=== PATIENT | male | born 1980 | race African-American/Black ===

== ENCOUNTER 2017-01-31 12:00 | Emergency (ER) | payer OTHER ==
[~2017-01-31] VITALS: Ht 180.3 cm; Wt 104.3 kg
[~2017-01-31 12:00] MED LIST: CIPROFLOXACIN500 M2 ORAL; HYDROCODON-ACE1 EA15 ORAL; METRONIDAZOLE500 MG ORAL
[2017-01-31 12:16] VITALS: BP 114/74
[2017-01-31 13:04] LABS: APPEARANCE,URINE CLEAR; KETONES,URINE NEGATIVE (NEGATIVE); LEUKOCYTE ESTERASE ,URINE 2+ (NEGATIVE); NITRITE,URINE NEGATIVE (NEGATIVE); PH,URINE 7 (4.5-8.0); PROTEIN,URINE NEGATIVE (NEGATIVE); UROBILINOGEN,URINE NORMAL MG/DL (0.0-1.0)
[2017-01-31] MEDS ORDERED: Lidocaine 1% MPF 10mg/ml 5ml INJ ONE (13:15)
[2017-01-31 13:19] LABS: BACTERIA,URINE OCCASIONAL /HPF; MUCUS,URINE FEW /LPF (NONE/OCC); RBC,URINE 0-2 /HPF (0 - 0); SQUAMOUS EPITHELIAL CELL,UR OCCASIONAL /LPF (NONE/OCC)
--- NOTE | 2017-01-31 13:23 | Emergency Room Report ---
History of Present Illness General Chief Complaint: Male Urogenital Problems Source: Patient Present Illness HPI 37-year-old male presents to the emergency department complaining of penile discharge with dysuria and finding out that his partner just was tested positive for gonorrhea. Patient also reports intermittent vertigo x1 week. reports feeling as though the room is spinning around him exacerbations upon getting up out of bed or sitting up too quickly. pt. reports hx of vertigo in the past. Patient denies history of head injury he denies tinnitus, recent upper respiratory illness, extremity weakness, facial droop, ear pain. He denies history of vertigo in the past. Also reports generalized ache headache and 2 days of constipation. He reports nausea he denies vomiting. he denies swollen tender lymph nodes, rashes, abdominal tenderness. Denies testicular pain or swelling. Denies CP, Palpitations, LOC, AMS, dizziness, Changes in Vision, Sensation, paresthesias, or a sudden severe headache. Allergies: Coded Allergies: DOLUTEGRAVIR (Verified Allergy, Unknown, 01/31/17) Patient History Past Medical History: see triage record Past Surgical History: none Pertinent Family History: none Immunizations: UTD Reviewed Nursing Documentation: PMH: Agreed, PSxH: Agreed Nursing Documentation-PMH Past Medical History: No History, Except For Review of Systems All Other Systems: negative except mentioned in HPI Physical Exam Vital Signs Date Time Temp Pulse Resp B/P (MAP) Pulse Ox O2 Delivery O2 Flow Rate FiO2 01/31/17 12:16 97.9 86 18 114/74 98 Room Air Sp02 EP Interpretation: reviewed, normal General Appearance: no apparent distress, alert, GCS 15, non-toxic Head: normocephalic, atraumatic Eyes: bilateral eye normal inspection, bilateral eye PERRL ENT: hearing grossly normal, normal voice Neck: full range of motion, supple/symm/no masses Respiratory: lungs clear, normal breath sounds, speaking full sentences Cardiovascular #1: regular rate, rhythm Gastrointestinal: normal bowel sounds, non tender, soft Rectal: deferred Genitourinary: normal inspection, no CVA tenderness, other - white d/c Musculoskeletal: back normal, gait/station normal, normal range of motion, non- tender Neurologic: alert, oriented x3, responsive, motor strength/tone normal, sensory intact, cerebellar normal, normal gait, speech normal, other - negative padmini-hallpike Skin: normal color, no rash, warm/dry, well hydrated Lymphatic: no adenopathy Medical Decision Making PA Attestation Dr. worley is my supervising Physician whom patient management has been discussed with. Diagnostic Impression: Primary Impression: Peripheral vertigo, unspecified Additional Impression: Contact with or exposure to venereal diseases ER Course 37-year-old male presents to the emergency department complaining of penile discharge with dysuria and finding out that his partner just was tested positive for gonorrhea. Patient also reports intermittent vertigo x1 week. reports feeling as though the room is spinning around him exacerbations upon getting up out of bed or sitting up too quickly. pt. reports hx of vertigo in the past. Patient denies history of head injury he denies tinnitus, recent upper respiratory illness, extremity weakness, facial droop, ear pain. He denies history of vertigo in the past. Also reports generalized ache headache and 2 days of constipation. He reports nausea he denies vomiting. he denies swollen tender lymph nodes, rashes, abdominal tenderness. Denies testicular pain or swelling. Denies CP, Palpitations, LOC, AMS, dizziness, Changes in Vision, Sensation, paresthesias, or a sudden severe headache. Ddx considered but are not limited to UTi , Urethritis, LGV, STI, Stone, Cystitis, prostatitis, Mnire's, BPPV, labrinitis, cerebellar stroke, hypovolemia, cardiac cause. Vital signs: are WNL, pt. is afebrile H&PE are most consistent with Urethritis, and peripheral vertigo- negative [place]- Hallpike ORDERS: - UA : evidence of infection with mucus, bacteria and elevated wbc's will treat. ED INTERVENTIONS: -250mg Rocephin IM -Reglan -Oral fluid/ food challenge: pt. able to tolerate oral intake. I do not suspect an emergent condition at this time. With current presentation, pt. is stable for close outpatient follow up and conservative treatment. D/w pt. to return promptly to ED with worsening or new symptoms.- Pt. (and or responsible green party) verbalizes' understanding and agreement with proposed treatment plan. DISCHARGE: At this time pt. is stable for d/c to home. Will provide printed patient care instructions, and any necessary prescriptions. Care plan and follow up instructions have been discussed with the patient prior to discharge. Labs Test 01/31/17 12:47 Urine Color Yellow Urine Appearance Clear Urine pH 7 (4.5-8.0) Urine Specific [place] 1.010 (1.005-1.035) Urine Protein Negative (NEGATIVE) Urine Glucose (UA) Negative (NEGATIVE) Urine Ketones Negative (NEGATIVE) Urine Occult Blood Negative (NEGATIVE) Urine Nitrite Negative (NEGATIVE) Urine Bilirubin Negative (NEGATIVE) Urine Urobilinogen Normal MG/DL (0.0-1.0) Urine Leukocyte Esterase 2+ (NEGATIVE) Urine RBC 0-2 /HPF (0 - 0) Urine WBC 10-15 /HPF (0 - 0) Urine Squamous Epithelial Cells Occasional /LPF Urine Bacteria Occasional /HPF (NONE) Urine Mucus Few /LPF (NONE/OCC) Last Vital Signs Date Time Temp Pulse Resp B/P (MAP) Pulse Ox O2 Delivery O2 Flow Rate FiO2 01/31/17 12:16 97.9 86 18 114/74 98 Room Air Disposition: HOME, SELF-CARE Condition: Stable Scripts Doxycycline Hyclate* (VIBRAMYCIN*) 100 Mg Capsule 100 MG ORAL EVERY 12 HOURS for 7 Days, #14 CAP 0 Refills Prov: Brooke Mccracken 01/31/17 Meclizine Hcl* (MECLIZINE*) 25 Mg Tablet 25 MG ORAL THREE TIMES A DAY, #15 TAB Prov: Brooke Mccracken 01/31/17 Docusate Sodium* (COLACE*) 100 Mg Capsule 100 MG ORAL THREE TIMES A DAY for 5 Days, #15 CAP Prov: Brooke Mccracken 01/31/17 Departure Forms: Return to Work Return to Work Date: Feb 03, 2017 Work Restrictions: None Return to Full Activity: Feb 03, 2017 Patient Instructions: Gonorrhea, Vertigo, [id number] Additional Instructions: Take medications as directed. MAKE SURE YOUR PARTNERS GET TREATED WITH ANTIBIOTICS to prevent becoming re- infected No intercourse for 7-10 days, as you are infectious and can spread the bacterial infection. until antibiotic medications have been completed. Follow up with PCP in 3-5 days Return sooner to ED if new symptoms occur, or current symptoms become Brooke Mccracken Jan 31, 2017 13:23
[2017-01-31] MEDS: Meclizine 25mg tab ORAL PRN ×2 (13:36→13:37)
[2017-01-31] MEDS ORDERED: VIBRAMYCIN100 MG ORAL (14:01)
[2017-01-31] MEDS ORDERED: COLACE100 MG ORAL (14:01)
[2017-01-31] MEDS ORDERED: MECLIZINE HCL25 MG ORAL (14:01)
[2017-01-31 14:11] VITALS: BP 114/74
== END 2017-01-31 14:11 | disposition home or self-care (01) ==
LOC: EMR 13:25
DX: H81.399 Other peripheral vertigo, unspecified ear (principal); Z20.2 Contact with and (suspected) exposure to infections with a predominantly sexual mode of transmission
CPT/HCPCS: 81003; 87086; 96372; 99283

== ENCOUNTER 2017-03-14 12:58 | Emergency (ER) | payer OTHER ==
[~2017-03-14] VITALS: Ht 180.3 cm; Wt 98.0 kg
[~2017-03-14 12:58] MED LIST changes: +COLACE100 MG ORAL; +MECLIZINE HCL25 MG ORAL; +VIBRAMYCIN100 MG ORAL
[2017-03-14] MEDS ORDERED: GENVOYA TABLET1 EACH PO (13:08)
[2017-03-14 13:34] VITALS: BP 110/75
--- NOTE | 2017-03-14 13:46 | Emergency Room Report ---
History of Present Illness General Chief Complaint: General Complaint Source: Patient, Friend Present Illness HPI 37 yo male presents to ER complaining of anxiety and fainting. State episode occurred a "little while ago". Patient reports on his way to a new job his bus was running late and he began to hyperventilate and began to experience symptoms of vertigo and dizziness. Reports he then fell to the ground and hit his head. Patient denies pain at sight of injury, denies open wound, active bleeding. Friend reports witnessing event; states he called 911 and that friend was conscious and able to answer questions during the entire event. Patient was not brought in by ambulance. Patient states he has been able to eat and drink; states he has not been "drinking enough water lately." Patient reports history of anxiety, bipolar, HIV. Patient reports he is taking HIV medication but not taking medications psych conditions because he lost insurance. Patient denies vision changes, hearing changes. Patient denies chest pain, SOB, fever, muscle weakness, leg pain. Patient denies history of recent illness. Allergies: Coded Allergies: DOLUTEGRAVIR (Verified Allergy, Unknown, 01/31/17) Patient History Past Medical History: see triage record, psych hx, HIV Social History: Denies: smoking, alcohol use, drug use Reviewed Nursing Documentation: PMH: Agreed, PSxH: Agreed Nursing Documentation-PMH Past Medical History: No History, Except For Review of Systems All Other Systems: negative except mentioned in HPI Physical Exam Vital Signs Date Time Temp Pulse Resp B/P (MAP) Pulse Ox O2 Delivery O2 Flow Rate FiO2 03/14/17 13:01 97.9 102 20 110/75 97 Room Air Sp02 EP Interpretation: reviewed, normal General Appearance: alert, GCS 15, non-toxic, mild distress - complains of dizziness Head: normocephalic, atraumatic, other - no TTP, active bleeding, no open wound Eyes: bilateral eye normal inspection, bilateral eye PERRL, bilateral eye EOMI , bilateral eye other - mild nystagmus with EOM test ENT: hearing grossly normal, normal pharynx, no angioedema, normal voice, TMs + canals normal, uvula midline, moist mucus membranes Neck: full range of motion, supple/symm/no masses Respiratory: chest non-tender, lungs clear, normal breath sounds, no respiratory distress, no accessory muscle use, speaking full sentences Cardiovascular #1: regular rate, rhythm, no edema Cardiovascular #2: 2+ radial (R), 2+ radial (L) Gastrointestinal: normal bowel sounds, non tender, soft, non-distended, no guarding, no rebound Musculoskeletal: back normal, digits/nails normal, gait/station normal, normal range of motion, non-tender, no calf tenderness, calf tenderness, Yash's Sign negative Neurologic: alert, oriented x3, responsive, corporate webmaster III-XII nml as tested, motor strength/tone normal, sensory intact, speech normal Skin: normal color, no rash, warm/dry, well hydrated Lymphatic: no adenopathy Medical Decision Making PA Attestation Dr. Varner is my supervising Physician whom patient management has been discussed with. Diagnostic Impression: Primary Impression: Orthostatic dizziness Additional Impression: Vertigo ER Course Pt presents to ED c/o vertigo DDX considered but are not limited to vertigo, orthostatic hypotension, cardiac arrhythmia, electrolyte abnormality. A CT can of the head will not be performed as patient did not lose consciousness, has no complaints of TTP and has no edema or swelling at site of injury. VITAL SIGNS patient is afebrile, mild tachycardia ORDERS: EKG CXR CBC, CMP ED INTERVENTIONS: Lab results discussed with patient. No electrolyte abnormalities. EKG negative for atrial fibrillation, ST elevations. CXR negative for acute disease. ER COURSE: Patient resting comfortably following administration of medication; states he feels "much better" than on first presentation. Checked patient orthostatic vitals in ER, see nurses notes, nurse recorded into patient chart. Discuss with patient orthostatic vitals. Informed patient that they need fluids , can be provided by IV or PO challenge. Patient states he is able to tolerate and would prefer PO fluids so that he may discharged sooner. Discuss patient with Dr. Varner, states patient may be discharged at this time. Patient states he feels ready to be discharged home. Patient requesting work note. DISCHARGE: Rx provided for Meclizine Rx provided for Ibuprofen At this time pt is stable for d/c to home. Patient able to walk independently with no dizziness. Patient nontoxic appearing, in no acute distress. Patient provided with contact information for [facility] to establish care for psych disorders. Will provide with patient care instructions and any necessary prescriptions. Patient to take medication as instructed. Care plan and follow-up instructions provided. Patient questions asked and answered. Patient instructed to follow-up with primary care provider in 3 - 5 days. ER precautions given. Patient instructed to return to ER immediately for any new or worsening of symptoms. Labs Test 03/14/17 14:00 White Blood Count 6.1 K/UL (4.8-10.8) Red Blood Count 4.59 M/UL (4.70-6.10) Hemoglobin 13.8 G/DL (14.2-18.0) Hematocrit 42.3 % (42.0-52.0) Mean Corpuscular Volume 92 FL (80-99) Mean Corpuscular Hemoglobin 30.0 PG (27.0-31.0) Mean Corpuscular Hemoglobin Concent 32.6 G/DL (32.0-36.0) Red Cell Distribution Width 11.4 % (11.6-14.8) Platelet Count 225 K/UL (150-450) Mean Platelet Volume 5.6 FL (6.5-10.1) Neutrophils (%) (Auto) 47.2 % (45.0-75.0) Lymphocytes (%) (Auto) 30.9 % (20.0-45.0) Monocytes (%) (Auto) 18.7 % (1.0-10.0) Eosinophils (%) (Auto) 1.7 % (0.0-3.0) Basophils (%) (Auto) 1.6 % (0.0-2.0) Sodium Level 143 MMOL/L (136-145) Potassium Level 3.9 MMOL/L (3.5-5.1) Chloride Level 106 MMOL/L (98-107) Carbon Dioxide Level 29 MMOL/L (21-32) Anion Gap 8 mmol/L (5-15) Blood Urea Nitrogen 14 mg/dL (7-18) Creatinine 1.2 MG/DL (0.55-1.30) Estimat Glomerular Filtration Rate > 60 mL/min (>60) Glucose Level 80 MG/DL (74-106) Calcium Level 8.8 MG/DL (8.5-10.1) Total Bilirubin 0.6 MG/DL (0.2-1.0) Aspartate Amino Transf (AST/SGOT) 22 U/L (15-37) Alanine Aminotransferase (ALT/SGPT) 22 U/L (12-78) Alkaline Phosphatase 62 U/L (46-116) Total Protein 7.6 G/DL (6.4-8.2) Albumin 3.3 G/DL (3.4-5.0) Globulin 4.3 g/dL Albumin/Globulin Ratio 0.8 (1.0-2.7) EKG Diagnostic Results EKG Time: 13:56 Rate: normal Rhythm: NSR ST Segments: no acute changes Other Impression Benign early repolarization ASA given to the pt in ED: No PA Scribe Wood Castillo PA-C Rhythm Strip Diag. Results EP Interpretation: yes Rhythm: NSR, no PVC's, no ectopy PA Scribe Text Peterson Castillo PA-C Chest X-Ray Diagnostic Results Chest X-Ray Diagnostic Results : Chest X-Ray Ordered: Yes # of Views/Limited/Complete: 1 View Indication: Other EP Interpretation: Yes PA Xray: Interpretation reviewed, by supervising MD Interpretation: no consolidation, no effusion, no pneumothorax Impression: No acute disease PA Scribe Text Peterson Castillo PA-C Last Vital Signs Date Time Temp Pulse Resp B/P (MAP) Pulse Ox O2 Delivery O2 Flow Rate FiO2 03/14/17 13:34 97.9 103 20 110/75 97 Room Air Status: improved Reevaluation Impression 1530 resting comfortably, in no acute distress, reports symptoms have improved. Orthostatic vitals show raise in pulse by 15 bpm from 85 to 100. 1600 PO fluid challenge, patient able to tolerate fluids orally with no difficulty. Disposition: HOME, SELF-CARE Condition: Improved Scripts Ibuprofen* (MOTRIN*) 600 Mg Tablet 600 MG ORAL Q6H Y for For Pain, #30 TAB Prov: Jeevan Castillo.Yung 03/14/17 Meclizine Hcl* (MECLIZINE*) 25 Mg Tablet 25 MG ORAL THREE TIMES A DAY for 7 Days, #21 TAB Prov: Jeevan Castillo.Yung 03/14/17 Departure Forms: Return to Work Patient Instructions: Orthostatic Hypotension, Vertigo, [id number] Additional Instructions: Followup with primary care provider in 2-3 days. Patient instructed to drink fluids. Patient provided with list of mental health urgent cares to establish care and treatment. Take medications as directed. Patient questions asked and answered. ER precautions given, patient instructed to return to ER immediately for any new or worsening of symptoms. Jeevan Castillo Mar 14, 2017 13:46
[2017-03-14] MEDS ORDERED: Meclizine 25mg tab ORAL PRN (14:00)
[2017-03-14 14:57] LABS: ANION GAP 8 mmol/L (5-15); BLOOD UREA NITROGEN 14 mg/dL (7-18); CALCIUM 8.8 MG/DL (8.5-10.1); CARBON DIOXIDE 29 MMOL/L (21-32); CHLORIDE 106 MMOL/L (98-107); CREATININE 1.2 MG/DL (0.55-1.30); POTASSIUM 3.9 MMOL/L (3.5-5.1); SODIUM 143 MMOL/L (136-145)
[2017-03-14 15:00] LABS: BASOPHILS % (AUTO) 1.6 % (0.0-2.0); EOSINOPHILS % (AUTO) 1.7 % (0.0-3.0); HEMATOCRIT 42.3 % (42.0-52.0); HEMOGLOBIN 13.8 G/DL (14.2-18.0); LYMPHOCYTES % (AUTO) 30.9 % (20.0-45.0); MEAN CORPUSCULAR VOLUME 92 FL (80-99); MONOCYTES % (AUTO) 18.7 % (1.0-10.0); NEUTROPHILS % (AUTO) 47.2 % (45.0-75.0); PLATELET COUNT 225 K/UL (150-450); RED BLOOD COUNT 4.59 M/UL (4.70-6.10); RED CELL DISTRIBUTION WIDTH 11.4 % (11.6-14.8); WHITE BLOOD COUNT 6.1 K/UL (4.8-10.8)
[2017-03-14 15:02] LABS: ALANINE AMINOTRANSFERASE 22 U/L (12-78); ALBUMIN 3.3 G/DL (3.4-5.0); ALBUMIN/GLOBULIN RATIO 0.8 (1.0-2.7); ALKALINE PHOSPHATASE 62 U/L (46-116); ASPARTATE AMINO TRANSFERASE 22 U/L (15-37); BILIRUBIN,TOTAL 0.6 MG/DL (0.2-1.0)
[2017-03-14] MEDS ORDERED: IBUPROFEN600 MG ORAL (16:21)
[2017-03-14] MEDS ORDERED: MECLIZINE HCL25 MG ORAL (16:21)
--- NOTE | 2017-03-14 16:22 | Diagnostic Imaging Report ---
Indication: Chest pain Technique: One view of the chest Comparison: none Findings: Lungs and pleural spaces are clear. Heart size is normal Impression: No acute process
[2017-03-14 16:32] VITALS: BP 104/72
[2017-03-14 16:35] VITALS: BP 104/72
--- NOTE | 2017-03-16 19:16 | Cardiology Report ---
APPROVED REPORT EKG Measurement Heart [id number] Normal sinus rhythm Early repolarization Normal ECG
== END 2017-03-14 16:36 | disposition home or self-care (01) ==
LOC: EMR 14:00
DX: R42 Dizziness and giddiness (principal); F41.9 Anxiety disorder, unspecified; Z88.8 Allergy status to other drugs, medicaments and biological substances
CPT/HCPCS: 36415; 71045; 80053; 85025; 93005; 99284

== ENCOUNTER 2018-02-14 01:10 | Emergency (ER) | payer OTHER ==
[~2018-02-14] VITALS: Ht 182.9 cm; Wt 106.6 kg
[~2018-02-14 01:10] MED LIST changes: +BACTRIM DS TAB1 EAC1 ORAL; +GENVOYA TABLET1 EACH PO; +IBUPROFEN600 MG ORAL
[2018-02-14] MEDS ORDERED: LEXAPRO10 MG ORAL (01:19)
[2018-02-14] MEDS ORDERED: REMERON15 MG ORAL (01:19)
[2018-02-14] MEDS ORDERED: BIKTARVY 50-201 EACH PO (01:19)
[2018-02-14] MEDS ORDERED: DEPAKOTE ER500 MG ORAL (01:19)
[2018-02-14 01:20] VITALS: BP 130/81
[2018-02-14] MEDS ORDERED: AZITHROMYCIN500 MG ORAL (01:51)
--- NOTE | 2018-02-14 01:52 | Emergency Room Report ---
History of Present Illness General Chief Complaint: General Complaint Source: Patient Present Illness HPI This is a 38-year-old male with a history of HIV. His last CD4 count was over 500. Viral load was undetectable. Patient presents with chief complaint of diarrhea. His been ongoing for the last week but worse tonight. Notice some blood in the stool and also afterward has some mucousy fluid also. More bleeding tonight. Has some pain in that area. Subjective fever. No recent travel. Pain is crampy in nature. Allergies: Coded Allergies: DOLUTEGRAVIR (Verified Allergy, Unknown, 01/31/17) Patient History Past Medical History: see triage record, old chart reviewed Past Surgical History: none Pertinent Family History: none Social History: Denies: smoking Immunizations: other Reviewed Nursing Documentation: PMH: Agreed; PSxH: Agreed Nursing Documentation-PMH Past Medical History: No History, Except For Hx Cardiac Problems: Yes - HIV Hx Hypertension: Yes - hypotension History Of Psychiatric Problem: Yes - bipolar type 2, depression, anxiety Review of Systems Eye: Denies: eye pain, blurred vision ENT: Denies: ear pain, nose congestion, throat swelling Respiratory: Denies: cough, shortness of breath Cardiovascular: Denies: chest pain, palpitations Gastrointestinal: Reports: diarrhea; Denies: abdominal pain, nausea, vomiting Musculoskeletal: Denies: back pain, joint pain Skin: Denies: rash Neurological: Denies: headache, numbness Endocrine: Denies: increased thirst, increased urine Hematologic/Lymphatic: Denies: easy bruising All Other Systems: negative except mentioned in HPI Physical Exam Vital Signs Date Time Temp Pulse Resp B/P (MAP) Pulse Ox O2 Delivery O2 Flow Rate FiO2 02/14/18 01:12 97.5 115 18 130/81 95 Room Air 02/14/18 01:20 99 vitals with tachycardia. At rest heart rate 100 Sp02 EP Interpretation: reviewed, normal General Appearance: well appearing, no apparent distress, alert Head: normocephalic, atraumatic Eyes: bilateral eye PERRL, bilateral eye EOMI ENT: hearing grossly normal, normal pharynx Neck: full range of motion, supple, no meningismus Respiratory: chest non-tender, lungs clear, normal breath sounds Cardiovascular #1: regular rate, rhythm, no murmur Gastrointestinal: normal bowel sounds, non tender, no mass, no organomegaly, no bruit, non-distended Musculoskeletal: back normal, gait/station normal, normal range of motion Psychiatric: mood/affect normal Skin: warm/dry Medical Decision Making Diagnostic Impression: Primary Impression: Infectious diarrhea in adult patient ER Course Patient presents with symptom concerning for infectious diarrhea. He does have risk factor with his HIV status. We'll go ahead and treat. I ordered stool culture here. No evidence of any prolapse or acute abdomen. Last Vital Signs Date Time Temp Pulse Resp B/P (MAP) Pulse Ox O2 Delivery O2 Flow Rate FiO2 02/14/18 01:20 97.5 100 18 130/81 95 Room Air 02/14/18 01:20 99 Status: improved Disposition: HOME, SELF-CARE Condition: Stable Scripts Azithromycin (AZITHROMYCIN) 500 Mg Tablet 500 MG ORAL DAILY, #2 TAB Prov: Geoffrey Cintron MD 02/14/18 Referrals: NOT CHOSEN [facility]/,REFERRING (PCP) Additional Instructions: Follow-up with your doctor in a week for recheck. Return if symptom worsen. Increase fluids. Started your antibiotics tomorrow night. Geoffrey Cintron MD Feb 14, 2018 01:52
[2018-02-14 02:00] VITALS: BP 125/78
[2018-02-14] MEDS ORDERED: Azithromycin 250mg tab ORAL ONE (02:00)
== END 2018-02-14 02:12 | disposition home or self-care (01) ==
LOC: EMR 01:38
DX: A09 Infectious gastroenteritis and colitis, unspecified (principal); B20 Human immunodeficiency virus [HIV] disease; Z88.8 Allergy status to other drugs, medicaments and biological substances; F32.9 Major depressive disorder, single episode, unspecified; F41.9 Anxiety disorder, unspecified; F31.81 Bipolar II disorder
CPT/HCPCS: 99282

== ENCOUNTER 2018-03-05 11:47 | Emergency (ER) | payer OTHER ==
[~2018-03-05] VITALS: Ht 180.3 cm; Wt 106.6 kg
[~2018-03-05 11:47] MED LIST changes: +AZITHROMYCIN500 MG ORAL; +BIKTARVY 50-201 EACH PO; +DEPAKOTE ER500 MG ORAL; +LEXAPRO10 MG ORAL; +REMERON15 MG ORAL
[2018-03-05 12:04] VITALS: BP 124/75
--- NOTE | 2018-03-05 12:07 | NUR ---
ED Nurse Note: pt walked in to ED due to scrotum pain for last 1 week. pt denies any injury or trauma previousely. denies any swelling but reported color changes to redness, very sensitive to touch and painful. per pt, pain gets worse when standing up. pt also c/o whitish discharge. AAO x4. respirations even and non-labored noted. skin warm to touch and no open wound noted. SIMIN Moore at the bed side. will wait for the further order.
[2018-03-05] MEDS ORDERED: Bicillin LA 2.4MMU/4ML SYR IM ONE (12:15)
[2018-03-05] MEDS ORDERED: Lidocaine 1% MPF 10mg/ml 5ml INJ ONE (12:15)
[2018-03-05] MEDS ORDERED: metroNIDAZOLE 500mg tab ORAL ONE (12:15)
[2018-03-05] MEDS ORDERED: Azithromycin 250mg tab ORAL ONE (12:15)
--- NOTE | 2018-03-05 12:20 | Emergency Room Report ---
History of Present Illness General Chief Complaint: Male Urogenital Problems Source: Patient, Medical Record Present Illness HPI The pt is a 38 yo M with HIV presenting for scrotal pain. CD4 count of 580 in October 2017 per patient. He states one of his partners mentioned that he may have syphilis. He noticed a rash and pain 2 weeks prior. Described as a 7/10 dull ache/burning. Pain does not radiate. Worse with touch. He admits to several male sexual partners in the past month. He admits to one instance of white penile DC 2 weeks prior. He denies dysuria, hematuria, testicular pain, abd pain, N, V, F, chills, back pain. Allergies: Coded Allergies: DOLUTEGRAVIR (Verified Allergy, Unknown, 01/31/17) Patient History Past Medical History: see triage record, HIV Reviewed Nursing Documentation: PMH: Agreed; PSxH: Agreed Nursing Documentation-PMH Hx Cardiac Problems: Yes - HIV Hx Hypertension: Yes - hypotension Review of Systems All Other Systems: negative except mentioned in HPI Physical Exam Vital Signs Date Time Temp Pulse Resp B/P (MAP) Pulse Ox O2 Delivery O2 Flow Rate FiO2 03/05/18 11:49 98.1 101 20 124/75 97 Room Air Sp02 EP Interpretation: reviewed, normal General Appearance: no apparent distress, alert, GCS 15, non-toxic Respiratory: chest non-tender, lungs clear, normal breath sounds, speaking full sentences Cardiovascular #1: regular rate, rhythm, no edema Genitourinary: no CVA tenderness, penis normal, other - multiple vesicles of the scrotum. no surrounding erythema. No testicular tenderness or scrotal edema. Musculoskeletal: back normal, gait/station normal, normal range of motion, non- tender Neurologic: alert, oriented x3, responsive, motor strength/tone normal, sensory intact, speech normal Psychiatric: judgement/insight normal, memory normal, mood/affect normal, no suicidal/homicidal ideation Skin: other - vesicles of the scrotum only. No penile lesion. Lymphatic: no adenopathy Medical Decision Making PA Attestation Dr. Daniels is my supervising physician. Patient management was discussed with my supervising physician Diagnostic Impression: Primary Impression: Possible exposure to STD Additional Impression: Herpes genitalis in men ER Course The pt is a 38 yo M with HIV presenting for scrotal pain. Differential diagnoses considered but not limited to: Gonorrhea, Chlamydia, herpes, urinary tract infection, epididymitis, testicular torsion, among others PE: Afebrile. NAD Abd: soft and non tender : multiple vesicles of the scrotum. no surrounding erythema. No testicular tenderness or scrotal edema. Penis unremarkable. No lesions or DC UA: there blood with 2-4 RBCs and occasional bacteria. Negative nitrite. Case discussed with Dr. Daniels. He will be treated with flagyl, penicillin G, Rocephin, and azithromycin He is given safe sex instruction. Prescription for acyclovir. He is to F/U with PCP as soon as possible. ER precautions given Laboratory Tests Test 03/05/18 12:21 Urine Color Yellow Urine Appearance Clear Urine pH 6 (4.5-8.0) Urine Specific [place] 1.025 (1.005-1.035) Urine Protein 2+ (NEGATIVE) H Urine Glucose (UA) Negative (NEGATIVE) Urine Ketones Negative (NEGATIVE) Urine Blood 2+ (NEGATIVE) H Urine Nitrite Negative (NEGATIVE) Urine Bilirubin Negative (NEGATIVE) Urine Urobilinogen 1 MG/DL (0.0-1.0) H Urine Leukocyte Esterase Negative (NEGATIVE) Urine RBC 2-4 /HPF (0 - 0) H Urine WBC 2-4 /HPF (0 - 0) Urine Squamous Epithelial Cells Occasional /LPF Urine Bacteria Occasional /HPF (NONE) Lab Results Impression there blood with 2-4 RBCs and occasional bacteria Last Vital Signs Date Time Temp Pulse Resp B/P (MAP) Pulse Ox O2 Delivery O2 Flow Rate FiO2 03/05/18 12:04 98.1 101 20 124/75 97 Room Air Status: improved Disposition: HOME, SELF-CARE Condition: Improved Scripts Acyclovir* (ACYCLOVIR*) 400 Mg Tablet 400 MG ORAL Q8HR for 10 Days, TAB Prov: SILVIA ESPINOZA P.A. 03/05/18 Bacitracin (Bacitracin) 28.4 Gm Oint...g. 1 APPLIC TOPIC THREE TIMES A DAY, #28 GM Prov: SILVIA ESPINOZA P.A. 03/05/18 SILVIA ESPINOZA P.A. Mar 05, 2018 12:20
[2018-03-05 13:02] LABS: APPEARANCE,URINE CLEAR; BILIRUBIN, URINE NEGATIVE (NEGATIVE); COLOR,URINE YELLOW; GLUCOSE, URINE (UA) NEGATIVE (NEGATIVE); KETONES,URINE NEGATIVE (NEGATIVE); LEUKOCYTE ESTERASE ,URINE NEGATIVE (NEGATIVE); NITRITE,URINE NEGATIVE (NEGATIVE); PH,URINE 6 (4.5-8.0); PROTEIN,URINE 2+ (NEGATIVE); UROBILINOGEN,URINE 1 MG/DL (0.0-1.0)
[2018-03-05] MEDS ORDERED: ACYCLOVIR400 MG ORAL (13:26)
[2018-03-05] MEDS ORDERED: BACITRACIN15 GM TOPIC (13:26)
[2018-03-05 13:35] VITALS: BP 124/75
--- NOTE | 2018-03-05 13:35 | NUR ---
ED Nurse Note: pt was d/c per ERMD order. pt was given d/c and prescription instructions. pt is aox4, and verbalized understanding. pt ID band removed. pt is ambulatory with steady gait. pt has taken all their belongings. pt was informed to follow up with PMD if symptoms reoccur.
== END 2018-03-05 13:35 | disposition home or self-care (01) ==
LOC: EMR 12:28
DX: A60.02 Herpesviral infection of other male genital organs (principal); B20 Human immunodeficiency virus [HIV] disease; I10 Essential (primary) hypertension
CPT/HCPCS: 81003; 96372; 96374; 99284; J0696; Q0144

== ENCOUNTER 2019-05-18 06:17 | Emergency (ER) | payer MEDICAID, OTHER ==
[~2019-05-18] VITALS: Ht 180.3 cm; Wt 97.5 kg
[~2019-05-18 06:17] MED LIST changes: +ACYCLOVIR400 MG ORAL; +BACITRACIN15 GM TOPIC
--- NOTE | 2019-05-18 06:31 | NUR ---
ED Nurse Note: Walk-in patient with complaints of rash appearing a few days ago with matching lesions at left forearm and the right inner thigh. ERMD at bedside, will continue to monitor patient for discharge.
[2019-05-18 06:32] VITALS: BP 117/83
[2019-05-18] MEDS ORDERED: Bicillin LA 2.4MMU/4ML SYR IM ONE (06:45)
[2019-05-18] MEDS ORDERED: LOTRIMIN ULTRA12 GM TP (06:46)
--- NOTE | 2019-05-18 06:55 | Emergency Room Report ---
History of Present Illness General Chief Complaint: Skin Rash/Abscess Source: Patient Present Illness HPI Disclaimer: Please note that this report is being documented using DRAGON technology. This can lead to erroneous entry secondary to incorrect interpretation by the dictating instrument. HPI: 39-year-old male with a history of HIV, prior STI including syphilis, presents for evaluation of rash. Patient noticed a circular dry scaly region of the right inner thigh over the past few days. Reports it as irritating and itchy but denies any skin breakdown, bleeding, purulent discharge, raised lesions, ulcerations. Denies any pain, discomfort, rash or skin breakdown over the genitals. Denies dysuria, hematuria, penile discharge. Last CD4 reportedly greater than 600 in February 2019, cannot recall exact number. Denies any sores or patches on his palms or soles. Otherwise in his usual state of health denies any fever, chills, chest pain, shortness of breath, nausea, vomiting, diarrhea. PMH: HIV, STI PSH: Reviewed Allergies: Dolutravir Social Hx: Reviewed Allergies: Coded Allergies: DOLUTEGRAVIR (Verified Allergy, Unknown, 01/31/17) COVID-19 Screening Contact w/high risk pt: No Recent Travel to affected area: No Experienced COVID-19 symptoms?: No Nursing Documentation-PMH Hx Cardiac Problems: Yes - HIV Hx Hypertension: Yes - hypotension History Of Psychiatric Problem: Yes - bipolar Review of Systems All Other Systems: negative except mentioned in HPI Physical Exam Vital Signs Date Time Temp Pulse Resp B/P (MAP) Pulse Ox O2 Delivery O2 Flow Rate FiO2 05/18/19 06:22 98.1 90 18 117/83 (94) 97 Room Air General: Awake and alert, no acute distress HEENT: NC/AT. EOMI. Resp: Normal work of breathing Skin: Intact. No abrasions, laceration. There are 3 circular areas of dry scaly skin over the right inner thigh smaller than 1.5 cm across. There are raised edges with scaly interiors. Nontender, no weeping, no vesicles, no bleeding, no purulence. No surrounding edema or erythema. No ulcerations. Does not extend over the genitals. Localized over the right inner thigh. No lesions over the palms or soles. Another single dry scaly region with raised borders over the dorsal aspect of the left forearm. Also nontender without weeping, no vesicles, no bleeding, no edema, no erythema. MSK: Normal tone and bulk. Moving all extremities. No obvious deformity. Neuro: Awake and alert. Mentating appropriately Medical Decision Making Diagnostic Impression: Primary Impression: Rash ER Course This is a 39-year-old male with a history of HIV, HSV, prior STI presents for evaluation of rash. Differential includes but not limited to atopic dermatitis , fungal infection, syphilis, HSV, zoster, Kaposi's sarcoma, scabies, Lyme disease. Of these the patient's presentation is most consistent with a tinea corporis type infection though a secondary syphilis is also possible given his prior history. He has no symptoms of urethritis, penile lesions, or vesicles to suggest zoster or HSV at this time. He is compliant with his antiviral medication regimen. The patient will be covered for syphilis with a dose of penicillin in the ED and discharged with antifungal medication. He is instructed to quickly follow-up with his HIV clinic and his PMD for reevaluation , STI testing, repeat CD4 levels. Discussed reasons to return to the emergency department. He understands and agrees the treatment plan. Last Vital Signs Date Time Temp Pulse Resp B/P (MAP) Pulse Ox O2 Delivery O2 Flow Rate FiO2 05/18/19 06:32 98.1 82 18 117/83 97 Room Air Disposition: HOME, SELF-CARE Condition: Stable Scripts Butenafine Hcl (LOTRIMIN ULTRA) 12 Gm Cream..g. 12 GM TP BID for 14 Days, #24 GM Prov: Nasir Jacques MD 05/18/19 Patient Instructions: Body Ringworm, Syphilis Test Additional Instructions: Follow-up with your primary doctor as soon as possible to arrange for repeat CD4 counts, syphilis testing, other STI testing and reevaluation of rash. You are treated with penicillin here for possible rash secondary to syphilis and will need reevaluation and further testing to confirm. He also be treated with antifungal cream for possible ringworm infection. Use the medication as instructed. Return with any new or worsening symptoms. Continue physical distancing isolation as recommended by CDC and local health department regarding the novel coronavirus outbreak. Return to the emergency department with any new or worsening symptoms. Nasir Jacques MD May 18, 2019 06:55
[2019-05-18 06:57] VITALS: BP 117/83
--- NOTE | 2019-05-18 06:57 | NUR ---
ER DISCHARGE NOTE: Patient tolerated injection well. Patient is cleared to be discharged per ERMD, pt is aox4, on room air, with stable vital signs. pt was given dc and prescription instructions, pt was able to verbalize understanding, pt id band removed. pt is able to ambulate with steady gait. pt took all belongings.
== END 2019-05-18 06:58 | disposition home or self-care (01) ==
LOC: EMR 06:39
DX: R21 Rash and other nonspecific skin eruption (principal); B20 Human immunodeficiency virus [HIV] disease; I10 Essential (primary) hypertension; F31.9 Bipolar disorder, unspecified
CPT/HCPCS: 99282

== ENCOUNTER 2019-07-06 09:58 | Emergency (ER) | payer MEDICAID ==
[~2019-07-06] VITALS: Ht 190.5 cm; Wt 86.2 kg
[~2019-07-06 09:58] MED LIST changes: +LOTRIMIN ULTRA12 GM TP
[2019-07-06] MEDS ORDERED: Omnipaque-300 100ml vial INJ PRN (10:15)
--- NOTE | 2019-07-06 10:30 | NUR ---
ED Nurse Note:pt. came from home with abdominal pain and diahrrea, VSS, blood sent to labs and given IV fluids
[2019-07-06 10:58] VITALS: BP 150/80
[2019-07-06 11:16] LABS: ANION GAP 13 mmol/L (5-15); BLOOD UREA NITROGEN 23 mg/dL (7-18); CALCIUM 9.9 MG/DL (8.5-10.1); CARBON DIOXIDE 19 MMOL/L (21-32); CHLORIDE 108 MMOL/L (98-107); CREATININE 1.4 MG/DL (0.55-1.30); POTASSIUM 4.8 MMOL/L (3.5-5.1); SODIUM 140 MMOL/L (136-145)
[2019-07-06 11:20] LABS: ALANINE AMINOTRANSFERASE 31 U/L (12-78); ALBUMIN 4.2 G/DL (3.4-5.0); ALBUMIN/GLOBULIN RATIO 0.7 (1.0-2.7); ALKALINE PHOSPHATASE 88 U/L (46-116); ASPARTATE AMINO TRANSFERASE 31 U/L (15-37); BILIRUBIN,TOTAL 0.3 MG/DL (0.2-1.0)
[2019-07-06 11:24] LABS: BASOPHILS % (AUTO) 1.1 % (0.0-2.0); EOSINOPHILS % (AUTO) 0.9 % (0.0-3.0); HEMATOCRIT 50.7 % (42.0-52.0); HEMOGLOBIN 17.4 G/DL (14.2-18.0); LYMPHOCYTES % (AUTO) 19.2 % (20.0-45.0); MEAN CORPUSCULAR VOLUME 86 FL (80-99); MONOCYTES % (AUTO) 8.1 % (1.0-10.0); NEUTROPHILS % (AUTO) 70.8 % (45.0-75.0); PLATELET COUNT 242 K/UL (150-450); RED BLOOD COUNT 5.89 M/UL (4.70-6.10); RED CELL DISTRIBUTION WIDTH 12.5 % (11.6-14.8); WHITE BLOOD COUNT 12.9 K/UL (4.8-10.8)
--- NOTE | 2019-07-06 11:30 | Emergency Room Report ---
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 COVID-19 Screening: Positive COVID-19 COVID-19 Testing Source: n Nursing Documentation-PMH Hx Hypertension: Yes - hypotension Review of Systems All Other Systems: negative except mentioned in HPI Physical Exam Vital Signs Date Time Temp Pulse Resp B/P (MAP) Pulse Ox O2 Delivery O2 Flow Rate FiO2 07/06/19 09:54 97.9 108 19 150/80 (103) 98 Room Air Sp02 EP Interpretation: reviewed, normal General Appearance: no apparent distress, alert, GCS 15, non-toxic Head: normocephalic, atraumatic Eyes: bilateral eye normal inspection, bilateral eye PERRL ENT: hearing grossly normal, normal pharynx, no angioedema, normal voice Neck: full range of motion, supple/symm/no masses Respiratory: chest non-tender, lungs clear, normal breath sounds, speaking full sentences Cardiovascular #1: regular rate, rhythm, no edema Cardiovascular #2: 2+ carotid (R), 2+ carotid (L), 2+ radial (R), 2+ radial (L) , 2+ dorsalis pedis (R), 2+ dorsalis pedis (L) Gastrointestinal: normal bowel sounds, non tender, soft, non-distended, no guarding, no rebound Rectal: deferred Genitourinary: normal inspection, no CVA tenderness Musculoskeletal: back normal, normal range of motion, calf tenderness, gait/ station normal, non-tender Neurologic: alert, motor strength/tone normal, oriented x3, sensory intact, responsive, speech normal Psychiatric: judgement/insight normal, memory normal, mood/affect normal, no suicidal/homicidal ideation Reflexes: 3+ bicep (R), 3+ bicep (L), 3+ tricep (R), 3+ tricep (L), 3+ knee (R) , 3+ knee (L) Lymphatic: no adenopathy Medical Decision Making Diagnostic Impression: Primary Impression: Gastroenteritis ER Course This patient has a clinical presentation consistent with gastroenteritis, the patient had multiple episodes of watery diarrhea in the emergency department. The patient's abdominal exam was benign and a CT only showed findings consistent with colitis. I do not suspect cholecystitis, pancreatitis, appendicitis or diverticulitis based on history and physical and laboratory workup. I will place the patient on Cipro and Flagyl. The patient is nontoxic and nonsurgical at this time. The patient was given return precautions and followup instructions. Laboratory Tests Test 07/06/19 10:30 07/06/19 10:40 Urine Color Brown Urine Appearance Slightly cloudy Urine pH 5 (4.5-8.0) Urine Specific [place] 1.025 (1.005-1.035) Urine Protein 3+ (NEGATIVE) H Urine Glucose (UA) Negative (NEGATIVE) Urine Ketones 1+ (NEGATIVE) H Urine Blood 2+ (NEGATIVE) H Urine Nitrite Negative (NEGATIVE) Urine Bilirubin 1+ (NEGATIVE) H Urine Ictotest Pending Urine Urobilinogen 1 MG/DL (0.0-1.0) H Urine Leukocyte Esterase Negative (NEGATIVE) Urine RBC Pending Urine WBC Pending Urine Squamous Epithelial Cells Pending Urine Bacteria Pending White Blood Count 12.9 K/UL (4.8-10.8) H Red Blood Count 5.89 M/UL (4.70-6.10) Hemoglobin 17.4 G/DL (14.2-18.0) Hematocrit 50.7 % (42.0-52.0) Mean Corpuscular Volume 86 FL (80-99) Mean Corpuscular Hemoglobin 29.5 PG (27.0-31.0) Mean Corpuscular Hemoglobin Concent 34.3 G/DL (32.0-36.0) Red Cell Distribution Width 12.5 % (11.6-14.8) Platelet Count 242 K/UL (150-450) Mean Platelet Volume 4.9 FL (6.5-10.1) L Neutrophils (%) (Auto) 70.8 % (45.0-75.0) Lymphocytes (%) (Auto) 19.2 % (20.0-45.0) L Monocytes (%) (Auto) 8.1 % (1.0-10.0) Eosinophils (%) (Auto) 0.9 % (0.0-3.0) Basophils (%) (Auto) 1.1 % (0.0-2.0) Sodium Level 140 MMOL/L (136-145) Potassium Level 4.8 MMOL/L (3.5-5.1) Chloride Level 108 MMOL/L (98-107) H Carbon Dioxide Level 19 MMOL/L (21-32) L Anion Gap 13 mmol/L (5-15) Blood Urea Nitrogen 23 mg/dL (7-18) H Creatinine 1.4 MG/DL (0.55-1.30) H Estimated Glomerular Filtration Rate > 60 mL/min (>60) Glucose Level 93 MG/DL (74-106) Calcium Level 9.9 MG/DL (8.5-10.1) Total Bilirubin 0.3 MG/DL (0.2-1.0) Aspartate Amino Transferase (AST) 31 U/L (15-37) Alanine Aminotransferase (ALT) 31 U/L (12-78) Alkaline Phosphatase 88 U/L (46-116) Total Protein 10.6 G/DL (6.4-8.2) H Albumin 4.2 G/DL (3.4-5.0) Globulin 6.4 g/dL Albumin/Globulin Ratio 0.7 (1.0-2.7) L Lipase 122 U/L (73-393) CT/MRI/US Diagnostic Results CT/MRI/US Diagnostic Results : Imaging Test Ordered: CT abd/pelvis Impression STOMACH DISTENDED WITH FOOD DEBRIS AND FLUID PERHAPS POSTPRANDIAL. FLUID-FILLED COLON DOWN TO THE RECTUM CONSISTENT WITH CLINICAL HISTORY OF DIARRHEAL DISEASE. Last Vital Signs Date Time Temp Pulse Resp B/P (MAP) Pulse Ox O2 Delivery O2 Flow Rate FiO2 07/06/19 10:58 108 19 Room Air 07/06/19 10:58 97.9 150/80 98 Status: improved Disposition: HOME, SELF-CARE Condition: Improved Referrals: [facility],REFERRING (PCP) Milvia Elam DO July 06, 2019 11:30
--- NOTE | 2019-07-06 11:35 | NUR ---
ED Nurse Note: taken to CT via [facility]
--- NOTE | 2019-07-06 11:50 | NUR ---
ED Nurse Note: BAck from ct
[2019-07-06 12:00] LABS: APPEARANCE,URINE SLIGHTLY CLOUDY; BILIRUBIN, URINE 1+ (NEGATIVE); COLOR,URINE BROWN; GLUCOSE, URINE (UA) NEGATIVE (NEGATIVE); KETONES,URINE 1+ (NEGATIVE); LEUKOCYTE ESTERASE ,URINE NEGATIVE (NEGATIVE); NITRITE,URINE NEGATIVE (NEGATIVE); PH,URINE 5 (4.5-8.0); PROTEIN,URINE 3+ (NEGATIVE); UROBILINOGEN,URINE 1 MG/DL (0.0-1.0)
--- NOTE | 2019-07-06 12:03 | NUR ---
ED Nurse Note:pt. had abd CT done
--- NOTE | 2019-07-06 13:22 | Diagnostic Imaging Report ---
EXAM: CT CT Abdomen Pelvis w/Contrast INDICATION: Abdominal pain and diarrhea. COMPARISON: 05/05/2017 TECHNIQUE: Axial images were obtained through the abdomen pelvis with intravenous contrast. Sagittal and coronal reformats are generated. All CT scans at this facility are performed using dose modulation techniques as appropriate to a performed exam including the following: automated exposure control with adjustment of the mA and/or kV according to patient size. RADIATION DOSE: CTDIvol: 7.7 mGy DLP: 409.6 mGy-cm Dose information generated by the CT scanner is available in PACS. FINDINGS: The lung bases are clear. The liver and spleen are homogeneous. Gallbladder is contracted. The pancreas is unremarkable. Adrenals are normal in morphology. The kidneys are normal in size, shape and axis. Stomach is distended with fluid and food debris. Small bowel loops are nondistended. There is fluid in the colon with may be consistent with clinical history of diarrheal disease. No discrete transition point or obstruction demonstrated. The appendix is not visualized. There is no free fluid or free air. There are small lymph nodes in the inguinal regions bilaterally. Urinary bladder appears unremarkable. There is no suspicious superficial soft tissue or osseous abnormality. IMPRESSION: STOMACH DISTENDED WITH FOOD DEBRIS AND FLUID PERHAPS POSTPRANDIAL. FLUID-FILLED COLON DOWN TO THE RECTUM CONSISTENT WITH CLINICAL HISTORY OF DIARRHEAL DISEASE.
[2019-07-06] MEDS ORDERED: ZOFRAN ODT8 MG ORAL (13:49)
[2019-07-06] MEDS ORDERED: CIPROFLOXACIN500 M2 ORAL (13:49)
[2019-07-06] MEDS ORDERED: METRONIDAZOLE500 MG ORAL (13:49)
[2019-07-06 14:20] VITALS: BP 140/78
--- NOTE | 2019-07-06 14:20 | NUR ---
ER DISCHARGE NOTE: Patient is cleared to be discharged per ERMD, pt is aox4, on room air, with stable vital signs. pt was given dc and prescription instructions, pt was able to verbalize understanding, pt id band and iv site removed without complications. pt is able to ambulate with steady gait. pt took all belongings.
== END 2019-07-06 14:20 | disposition home or self-care (01) ==
LOC: EDBD 09:58 → EMR 10:27
DX: K52.9 Noninfective gastroenteritis and colitis, unspecified (principal); I95.9 Hypotension, unspecified; Z88.8 Allergy status to other drugs, medicaments and biological substances; Z86.19 Personal history of other infectious and parasitic diseases
CPT/HCPCS: 36415; 74177; 80053; 81003; 83690; 85025; 96360; Q9967; Z7502; 99284

== ENCOUNTER 2019-12-27 22:06 | Emergency (ER) | payer BC, MEDICAID ==
[~2019-12-27] VITALS: Ht 180.3 cm; Wt 99.8 kg
[~2019-12-27 22:06] MED LIST changes: +ZOFRAN ODT8 MG ORAL
--- NOTE | 2019-12-27 22:18 | NUR ---
ED Nurse Note: Patient walked in from home c/o progressive loss of taste and smell for approximately 5 days. Patient denies fever or chills. Patient aao x 4 and ambulatory with steady gait. Patient reports he was exposed to covid positive person in the last 2 days. Patient stable during assessment, no acute distress noted.
[2019-12-27 22:19] VITALS: BP 133/85
--- NOTE | 2019-12-27 22:27 | Emergency Room Report ---
History of Present Illness General Chief Complaint: General Complaint Source: Patient Present Illness HPI Is a 39-year-old male with a history of HIV with normal CD4 count and undetectable viral load. He presents with chief complaint of loss of taste and smell. This is mild in nature. Also with body aches. This been ongoing for about 5 days. Has friend was tested positive for days ago. He has been around that person. He denies any nausea vomiting. No abdominal pain. No other sick contact. 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 COVID-19 Screening: Positive COVID-19 COVID-19 Testing Source: merritt holden Patient History Past Medical History: see triage record, old chart reviewed Past Surgical History: none Pertinent Family History: none Social History: Denies: smoking Immunizations: other Reviewed Nursing Documentation: PMH: Agreed; PSxH: Agreed Nursing Documentation-PMH Hx Hypertension: Yes - hypotension Review of Systems Constitutional: Reports: malaise Eye: Denies: eye pain, blurred vision ENT: Denies: ear pain, nose congestion, throat swelling Respiratory: Denies: cough, shortness of breath Cardiovascular: Denies: chest pain, palpitations Gastrointestinal: Denies: abdominal pain, diarrhea, nausea, vomiting Musculoskeletal: Denies: back pain, joint pain Skin: Denies: rash Neurological: Denies: headache, numbness Endocrine: Denies: increased thirst, increased urine Hematologic/Lymphatic: Denies: easy bruising All Other Systems: negative except mentioned in HPI Physical Exam Vital Signs Date Time Temp Pulse Resp B/P (MAP) Pulse Ox O2 Delivery O2 Flow Rate FiO2 12/27/19 22:11 98.1 95 15 147/92 (110) 97 Room Air Vitals unremarkable Sp02 EP Interpretation: reviewed, normal General Appearance: well appearing, no apparent distress, alert Head: normocephalic, atraumatic Eyes: bilateral eye PERRL, bilateral eye EOMI ENT: hearing grossly normal, normal pharynx Neck: full range of motion, supple, no meningismus Respiratory: chest non-tender, lungs clear, normal breath sounds Cardiovascular #1: regular rate, rhythm, no murmur Gastrointestinal: normal bowel sounds, non tender, no mass, no organomegaly, no bruit, non-distended Musculoskeletal: back normal, normal range of motion, gait/station normal Psychiatric: mood/affect normal Medical Decision Making Diagnostic Impression: Primary Impression: Close exposure to COVID-19 virus ER Course Patient presents with exposure to Covid. He said that he has mild decrease in taste and smell but not any loss. No other symptoms consistent with Covid. Testing is negative. Will discharge home. He also said that his partner has a rash at the base of his penis. Patient has no symptoms. I recommend outpatient STD testing. This can be done anonymously. Last Vital Signs Date Time Temp Pulse Resp B/P (MAP) Pulse Ox O2 Delivery O2 Flow Rate FiO2 12/27/19 22:19 92 17 Room Air 12/27/19 22:19 98.1 133/85 99 Status: unchanged Disposition: HOME, SELF-CARE Condition: Stable Additional Instructions: Follow-up with your doctor in 7 days. If you are concerned about STDs, you can get anonymous testing done as an outpatient. Return if symptoms worsen. Geoffrey Cintron MD Dec 27, 2019 22:27
[2019-12-27 22:59] VITALS: BP 125/79
--- NOTE | 2019-12-27 22:59 | NUR ---
ER DISCHARGE NOTE: Patient is cleared to be discharged per ERMD, pt is aox4, on room air, with stable vital signs. pt was given dc instructions, pt was able to verbalize understanding, pt id band removed. pt is able to ambulate with steady gait. pt took all belongings. pt stable upon discharge.
== END 2019-12-27 22:59 | disposition home or self-care (01) ==
LOC: EMR 22:29
DX: R43.9 Unspecified disturbances of smell and taste (principal); Z20.828 Contact with and (suspected) exposure to other viral communicable diseases; Z86.19 Personal history of other infectious and parasitic diseases; Z21 Asymptomatic human immunodeficiency virus [HIV] infection status; Z88.8 Allergy status to other drugs, medicaments and biological substances; I10 Essential (primary) hypertension
CPT/HCPCS: 99282; U0002

== ENCOUNTER 2020-01-06 10:57 | Emergency (ER) | payer BC ==
[~2020-01-06] VITALS: Ht 180.3 cm; Wt 99.8 kg
--- NOTE | 2020-01-06 11:08 | NUR ---
ED Nurse Note: pt presents to ED with loss of taste and smell x 5 days. pt reports testing negatively for COVID 1.5 weeks ago but + back in July. 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 no other complaints at this time
[2020-01-06 11:14] VITALS: BP 116/72
--- NOTE | 2020-01-06 11:21 | Emergency Room Report ---
History of Present Illness General Chief Complaint: General Complaint Source: Patient, Medical Record Present Illness HPI Patient is a 39-year-old male who presents for increased difficulty with breathing. Patient reports having recent exposure to coronavirus and states he is previously tested positive in the past. He reports of increased anosmia. Patient denies any chest discomfort. He reports being a smoker. Denies any prior cardiac history. Had reportedly had undetectable viral load and normal cell count. Allergies: Coded Allergies: DOLUTEGRAVIR (Verified Allergy, Unknown, 01/31/17) COVID-19 Screening Contact w/high risk pt: No Recent Travel to affected area: No Experienced COVID-19 symptoms?: Yes COVID-19 Testing performed PRODUCTION SUPV: Yes COVID-19 Screening: Negative COVID-19 COVID-19 Testing Source: 2 weeks ago Patient History Past Medical History: see triage record Reviewed Nursing Documentation: PMH: Agreed; PSxH: Agreed Nursing Documentation-PM Past Medical History: No History, Except For Review of Systems All Other Systems: negative except mentioned in HPI Physical Exam Vital Signs Date Time Temp Pulse Resp B/P (MAP) Pulse Ox O2 Delivery O2 Flow Rate FiO2 01/06/20 11:01 98.2 110 20 116/72 (87) 94 Room Air Sp02 EP Interpretation: reviewed, normal General Appearance: normal inspection, well appearing, no apparent distress, alert, GCS 15 Head: atraumatic ENT: normal ENT inspection, hearing grossly normal, normal voice Neck: normal inspection, full range of motion, supple, no bony tend Respiratory: normal inspection, lungs clear, normal breath sounds, no respiratory distress, no retraction, no wheezing Cardiovascular #1: regular rate, rhythm, no edema Gastrointestinal: normal inspection, normal bowel sounds, non tender, soft, no guarding, no hernia Genitourinary: no CVA tenderness Musculoskeletal: normal inspection, back normal, normal range of motion Neurologic: alert, responsive, speech normal, normal inspection Psychiatric: normal inspection, judgement/insight normal, mood/affect normal Medical Decision Making Diagnostic Impression: Primary Impression: Close exposure to COVID-19 virus ER Course Patient reports having increased anosmia. Differential diagnosis include was not limited to coronavirus infection, upper respiratory infection, sinusitis, allergic rhinitis among others. Patient has a benign exam and does not appear to require any imaging or laboratory testing at this time. Patient does not appear to have any evidence of respiratory distress. Patient does appear to have some increased nasal congestion. Given patient's prior history of coronavirus infection is unlikely that he is a second infection however he was advised to have outpatient coronavirus testing. At this time he does not meet criteria for inpatient management does not appear to have any evidence of shortness of breath. Patient was advised that we do not do outpatient coronavirus testing.This medical record is generated with [employer] victims advocate clerk/specialist software. There may be some victims advocate clerk/specialist discrepancies related to use of this software Last Vital Signs Date Time Temp Pulse Resp B/P (MAP) Pulse Ox O2 Delivery O2 Flow Rate FiO2 01/06/20 11:14 98.2 110 20 116/72 94 Room Air Status: improved Disposition: HOME, SELF-CARE Condition: Stable Maxi Varner MD Jan 06, 2020 11:21
--- NOTE | 2020-01-06 11:29 | NUR ---
ED Nurse Note: xray is at pt bedside
[2020-01-06] MEDS ORDERED: LORATADINE10 M2 PO (12:01)
[2020-01-06 12:13] VITALS: BP 116/72
--- NOTE | 2020-01-06 12:13 | NUR ---
ER DISCHARGE NOTE: Patient is cleared to be discharged per ERMD, pt is aox4, on room air, with stable vital signs. pt was given dc and prescription instructions, pt was able to verbalize understanding, pt id band removed without complications. pt is able to ambulate with steady gait. pt took all belongings.
--- NOTE | 2020-01-06 13:04 | Diagnostic Imaging Report ---
EXAM: XR Chest, 1 View CLINICAL HISTORY: SOB TECHNIQUE: Frontal view of the chest. COMPARISON: None available FINDINGS: Hardware: None. Lungs/pleura: Normal. No focal consolidation. No pleural effusion or pneumothorax. Heart/mediastinum: Normal. No cardiomegaly. Soft tissues: Unremarkable. Bones: No acute fracture. Upper abdomen: Normal. IMPRESSION: No acute disease identified.
== END 2020-01-06 12:14 | disposition home or self-care (01) ==
LOC: EMR 11:26
DX: R06.00 Dyspnea, unspecified (principal); Z88.8 Allergy status to other drugs, medicaments and biological substances; Z86.19 Personal history of other infectious and parasitic diseases; F17.200 Nicotine dependence, unspecified, uncomplicated; R43.0 Anosmia
CPT/HCPCS: 71045; 99283